=== PATIENT | female | born 1970 | race Hispanic/Latino ===

== ENCOUNTER 2017-10-24 08:36 | Emergency (ER) | payer SELFPAY ==
--- NOTE | 2017-10-24 09:45 | RAD ---
2 VIEWS CHEST: Date: 10/24/17 PROVIDED CLINICAL HISTORY: Cough. FINDINGS: Comparison with 11/04/15. Cardiac and mediastinal silhouette is within normal limits. Lungs appear clear. No pleural fluid or p neumothorax apparent. IMPRESSION: No evidence for an acute cardiopulmonary process. POS: [facility]
[2017-10-24 09:53] LABS: #Eosinphils 0.1 thou/uL (0.0-0.7); #Monocytes 0.7 thou/uL (0.11-0.59); #Neutrophils 7.9 thou/uL (1.40-6.50); %Eosinophils 0.6 % (0.0-10.0); %Lymphocytes 10.6 % (21.0-51.0); %Monocytes 7.3 % (0.0-10.0); %Neutrophils 81.6 % (42.0-75.0); Hemoglobin 12.1 g/dL (12.0-16.0); Mean Corpuscular HGB CONC 33.4 g/dL (32.0-36.0); Mean Corpuscular Hemoglobin 25.6 pg (27.0-31.0); Mean Corpuscular Volume 76.5 fl (81.0-99.0); Mean Platelet Volume 9.2 fL (7.4-10.4); Platelet Count 227 thou/uL (130-400); RBC Distribution Width 13.6 % (11.5-14.5); Red Blood Cell (RBC) Count 4.73 mill/uL (4.20-5.40); White Blood Cell (WBC) Count 9.6 thou/uL (4.8-10.8)
[2017-10-24 10:16] LABS: ALT (SGPT) 23 U/L (8-55); AST (SGOT) 20 U/L (5-34); Albumin 3.2 g/dL (3.5-5.0); Alkaline Phosphatase 97 U/L (40-150); Anion Gap 10 mmol/L (10-20); BUN (Urea Nitrogen) 13 mg/dL (7.0-18.7); Bilirubin, Total 0.4 mg/dL (0.2-1.2); Calc. Creatinine Clearance 0 mL/min (70-130); Calcium 8.8 mg/dL (7.8-10.44); Carbon Dioxide 26 mmol/L (22-29); Chloride 99 mmol/L (98-107); Estimated GFR-MDRD 59; Glucose 272 mg/dL (70-105); Magnesium 1.5 mg/dL (1.6-2.6); Phosphorus 2.8 mg/dL (2.3-4.7); Potassium 3.8 mmol/L (3.5-5.1); Protein, Total 7.2 g/dL (6.0-8.3); Sodium 131 mmol/L (136-145)
== END 2017-10-24 10:56 | disposition home or self-care (01) ==
LOC: ERS 08:36
DX: B34.9 Viral infection, unspecified (principal); M79.661 Pain in right lower leg; M79.662 Pain in left lower leg; E11.9 Type 2 diabetes mellitus without complications; I10 Essential (primary) hypertension; Z79.84 Long term (current) use of oral hypoglycemic drugs
CPT/HCPCS: 36415; 71046; 80053; 83735; 84100; 85025

== ENCOUNTER 2018-10-17 15:26 | Emergency (ER) | payer SELFPAY ==
[2018-10-17 16:21] LABS: Hemoglobin 12.3 g/dL (12.0-16.0); Mean Corpuscular HGB CONC 33.3 g/dL (32.0-36.0); Mean Corpuscular Hemoglobin 24.4 pg (27.0-31.0); Mean Corpuscular Volume 73.1 fL (78.0-98.0); Mean Platelet Volume 9.2 fL (7.4-10.4); Platelet Count 262 thou/uL (130-400); RBC Distribution Width 13.7 % (11.5-14.5); Red Blood Cell (RBC) Count 5.07 mill/uL (4.20-5.40); White Blood Cell (WBC) Count 14.8 thou/uL (4.8-10.8)
[2018-10-17 16:38] LABS: ALT (SGPT) 17 U/L (8-55); AST (SGOT) 15 U/L (5-34); Alkaline Phosphatase 113 U/L (40-150); Anion Gap 11 mmol/L (10-20); BUN (Urea Nitrogen) 11 mg/dL (7.0-18.7); Bilirubin, Total 0.4 mg/dL (0.2-1.2); Calc. Creatinine Clearance 0 mL/min (70-130); Calcium 8.7 mg/dL (7.8-10.44); Carbon Dioxide 23 mmol/L (22-29); Chloride 101 mmol/L (98-107); Estimated GFR-MDRD 56; Glucose 446 mg/dL (70-105); Potassium 3.8 mmol/L (3.5-5.1); Sodium 131 mmol/L (136-145)
[2018-10-17 16:41] LABS: #Basophils 0.1 thou/uL (0.0-0.2); #Eosinphils 0.2 thou/uL (0.0-0.7); #Lymphocytes 1.9 thou/uL (1.20-3.40); #Monocytes 0.5 thou/uL (0.11-0.59); #Neutrophils 12.2 thou/uL (1.40-6.50); %Basophils 0.4 % (0.0-1.0); %Eosinophils 1.2 % (0.0-10.0); %Lymphocytes 12.8 % (21.0-51.0); %Monocytes 3.5 % (0.0-10.0); %Neutrophils 82.2 % (42.0-75.0); Large Platelets SLIGHT; MDiff Complete? YES; Microcytosis SLIGHT = 6-15 cells (100X) (0-5/hpf); PLT Morphology Comment Appears Adequate; Poikilocytosis SLIGHT = 6-15 cells (100X) (0-5/hpf)
--- NOTE | 2018-10-17 16:43 | RAD ---
CHEST TWO VIEW 10/17/18 HISTORY: Chest pain, cough. COMPARISON: Radiograph 10/24/17. FINDINGS: There is mild peribronchial thickening along the right infrahilar bronchi. There is atelectatic michaud e in the lingula. No pneumothorax. No large effusion. No acute osseous abnormality. IMPRESSION: Findings suggesting low grade bronchitis as well as atelectatic change in the left lung base. POS: [facility]
[2018-10-17] MEDS ORDERED: Albuterol Sulfate 2.5 mg/3 ml Neb ONE (18:22)
[2018-10-17] MEDS ORDERED: cefTRIAXone\\ROCEPHIN 1 GM VIAL ONE (18:31)
== END 2018-10-17 19:56 | disposition home or self-care (01) ==
LOC: ERS 15:26
DX: J20.9 Acute bronchitis, unspecified (principal); E86.0 Dehydration; E11.9 Type 2 diabetes mellitus without complications; I10 Essential (primary) hypertension; Z79.84 Long term (current) use of oral hypoglycemic drugs
CPT/HCPCS: 36415; 71046; 80053; 85025; 87804; 93005; 94644; 96361; 96365; J0696; J7611; J7620

== ENCOUNTER 2019-08-15 14:11 | Emergency (ER) | payer SELFPAY ==
[2019-08-15 14:45] LABS: #Basophils 0.1 thou/uL (0.0-0.2); #Eosinphils 0.3 thou/uL (0.0-0.7); #Lymphocytes 2.3 thou/uL (1.20-3.40); #Monocytes 0.4 thou/uL (0.11-0.59); #Neutrophils 8.6 thou/uL (1.40-6.50); %Basophils 0.6 % (0.0-1.0); %Eosinophils 2.6 % (0.0-10.0); %Neutrophils 73.9 % (42.0-75.0); Mean Corpuscular HGB CONC 35.4 g/dL (32.0-36.0); Mean Corpuscular Hemoglobin 26.8 pg (27.0-31.0); Mean Corpuscular Volume 75.6 fL (78.0-98.0); Platelet Count 271 thou/uL (130-400); White Blood Cell (WBC) Count 11.7 thou/uL (4.8-10.8)
[2019-08-15 15:06] LABS: ALT (SGPT) 25 U/L (8-55); AST (SGOT) 23 U/L (5-34); Albumin 3.3 g/dL (3.5-5.0); Alkaline Phosphatase 124 U/L (40-110); Anion Gap 13 mmol/L (10-20); BUN (Urea Nitrogen) 19 mg/dL (7.0-18.7); Bilirubin, Total 0.3 mg/dL (0.2-1.2); Calc. Creatinine Clearance 0 mL/min (70-130); Calcium 9.2 mg/dL (7.8-10.44); Carbon Dioxide 26 mmol/L (22-29); Chloride 96 mmol/L (98-107); Estimated GFR-MDRD 44; Globulin 3.7 g/dL (2.4-3.5); Lipase 61 U/L (8-78); Potassium 4.3 mmol/L (3.5-5.1); Sodium 131 mmol/L (136-145)
--- NOTE | 2019-08-15 15:08 | RAD ---
XR Chest 1 View Portable History: Weakness Comparison: Radiograph October 17, 2018 Findings: Lungs are clear. No pneumothorax or effusion. Cardiac silhouette and mediastinal contours a re within normal limits. No acute osseous abnormality. Low-grade levoscoliosis thoracic spine. Impression: No acute intrathoracic abnormality.
[2019-08-15 15:09] LABS: Glucose 622 mg/dL (70-105)
[2019-08-15] MEDS ORDERED: Insulin Regular 300 UNITS/3 ML VIAL ONE (15:40)
[2019-08-15 17:45] LABS: Bacteria/HPF None Seen HPF (None Seen); Bilirubin Negative (Negative); Blood, Urine 2+ (Negative); Clarity Clear (Clear); Glucose, Urine (Dipstick) Greater than 1000 mg/dL (Negative); Leukocyte Negative Leu/uL (Negative); Nitrite Negative (Negative); Protein, Urine (Dipstick) 100 mg/dL (Neg-Trace); Squamous Epithelial 0-3 HPF (0-3); Urobilinogen Normal mg/dL (Less than 2); WBC/HPF 0-3 HPF (0-3)
== END 2019-08-15 18:40 | disposition home or self-care (01) ==
LOC: ERS 14:11
DX: E11.65 Type 2 diabetes mellitus with hyperglycemia (principal); I10 Essential (primary) hypertension; Z79.84 Long term (current) use of oral hypoglycemic drugs
CPT/HCPCS: 36415; 36416; 71045; 80053; 81003; 81015; 82010; 83690; 84484; 85025; 93005; 96360; J1815

== ENCOUNTER 2020-05-02 17:57 | Emergency (ER) | payer SELFPAY ==
[~2020-05-02 17:57] MED LIST: Iopamidol-370 76% 500 ML 1 ML ONE
[2020-05-02 19:14] LABS: #Basophils 0.1 thou/uL (0.0-0.2); #Eosinphils 0.6 thou/uL (0.0-0.7); #Lymphocytes 2.7 thou/uL (1.20-3.40); #Monocytes 0.5 thou/uL (0.11-0.59); #Neutrophils 8.4 thou/uL (1.40-6.50); %Basophils 0.5 % (0.0-1.0); %Eosinophils 4.6 % (0.0-10.0); %Lymphocytes 22.4 % (21.0-51.0); %Monocytes 3.9 % (0.0-10.0); %Neutrophils 68.6 % (42.0-75.0); Hemoglobin 12.4 g/dL (12.0-16.0); Mean Corpuscular Hemoglobin 22.7 pg (27.0-31.0); Mean Corpuscular Volume 70.9 fL (78.0-98.0); Mean Platelet Volume 10.3 fL (7.4-10.4); Platelet Count 279 thou/uL (130-400); RBC Distribution Width 13.8 % (11.5-14.5); Red Blood Cell (RBC) Count 5.47 mill/uL (4.20-5.40); White Blood Cell (WBC) Count 12.3 thou/uL (4.8-10.8)
--- NOTE | 2020-05-02 19:16 | RAD ---
CHEST ONE VIEW: History: Chest pain Comparison: 08-15-19 FINDINGS: Heart size is within normal limits. The lungs are clear. No confluent pneumonia, overt edema, or pleu ral effusion. IMPRESSION: No significant acute intrathoracic disease. POS: [facility]
[2020-05-02 19:32] LABS: ALT (SGPT) 26 U/L (8-55); AST (SGOT) 28 U/L (5-34); Albumin 3.1 g/dL (3.5-5.0); Alkaline Phosphatase 106 U/L (40-110); Anion Gap 11 mmol/L (10-20); BUN (Urea Nitrogen) 14 mg/dL (7.0-18.7); Bilirubin, Total 0.3 mg/dL (0.2-1.2); CK (CPK) 38 U/L (29-168); Calc. Creatinine Clearance 0 mL/min (70-130); Calcium 9.7 mg/dL (7.8-10.44); Carbon Dioxide 24 mmol/L (22-29); Chloride 105 mmol/L (98-107); Estimated GFR-MDRD 56; Globulin 4.1 g/dL (2.4-3.5); Glucose 207 mg/dL (70-105); Lipase 48 U/L (8-78); Potassium 4.4 mmol/L (3.5-5.1); Protein, Total 7.2 g/dL (6.0-8.3); Sodium 136 mmol/L (136-145)
[2020-05-02] MEDS ORDERED: Morphine 4 MG/ML VIAL ONE (19:33)
[2020-05-02 19:42] LABS: MDiff Complete? YES; Microcytosis SLIGHT = 6-15 cells (100X) (0-5/hpf); Platelet Morphology Comment Appears Adequate; Polychromasia SLIGHT = 2-3 cells (100X) (0-2/hpf)
[2020-05-02 20:11] LABS: Bilirubin Negative (Negative); Blood, Urine 1+ (Negative); Clarity Clear (Clear); Glucose, Urine (Dipstick) Greater than 1000 mg/dL (Negative); Ketone, Urine Negative (Negative); Leukocyte Negative Leu/uL (Negative); Nitrite Negative (Negative); Protein, Urine (Dipstick) 300 mg/dL (Neg-Trace); Specific Gravity, Urine 1.032 (1.002-1.036); Squamous Epithelial 0-3 HPF (0-3); Urobilinogen Normal mg/dL (Less than 2); pH, Urine 6.5 (5.0-9.0)
[2020-05-02 20:12] LABS: Bacteria/HPF 1+ HPF (None Seen)
--- NOTE | 2020-05-02 20:23 | ULT ---
GALLBLADDER ULTRASOUND: History: Right upper quadrant pain. FINDINGS: Coarse heterogeneous liver echogenicity, evidence for nonspecific hepatic parenchymal process. No gal lbladder is visualized. Possible cholecystectomy? Common bile duct dilated 0.9 cm. No right renal hyd ronephrosis. Visualized pancreas is unremarkable. Negative Zhang's sign. IMPRESSION: Coarse heterogeneous liver echogenicity. Nonvisualized gallbladder. Dilated common bile duct at 0.9 c m. No evidence for other acute process. POS: [facility]
--- NOTE | 2020-05-02 20:29 | CT ---
CT ABDOMEN AND PELVIS WITH IV CONTRAST 05/02/2020 CLINICAL INFORMATION: Right upper abdominal pain pain radiating to back. Symptoms of been present for 3 days COMPARISON: 10/17/2012 Technique: Multiple contiguous axial CT images are obtained through the abdomen and pelvis with IV contrast. Cor onal reformatted images are provided. FINDINGS: Lower Chest: Mild atelectasis is present at each lung base. Vessels: Abdominal aorta is normal in caliber without evidence of an aortic dissection. Abdomen: Portal vein:Patent Gallbladder: Surgically absent. Liver: Mild diminished attenuation relative to the spleen similar to prior study and likely attributa ble to mild fatty infiltration. Spleen: within normal limits. Pancreas: within normal limits. Adrenals: within normal limits. Kidneys: within normal limits. Bowel: Small amount retained fecal material seen throughout the colon. Appendix: The appendix is mildly prominent measuring 7-8 mm, but there is no periappendiceal inflamma tory changes to suggest appendicitis. This is probably within normal limits for the patient. Peritoneum: No ascites or free air; no fluid collection. Mesentery and Retroperitoneum: No enlarged mesenteric or retroperitoneal lymph nodes. Abdominal Wall: Tiny fat-containing umbilical hernia. Pelvis: Reproductive Organs: Nonspecific diminished attenuation in the endometrial canal. The area of diminis hed attenuation in the endometrial canal has decreased when compared to prior study. Pelvis within normal limits. Bladder: Incompletely distended. Bones: Degenerative changes in the visualized thoracic spine and lower lumbar spine. IMPRESSION: 1. No acute findings in the abdomen or pelvis. 2. Cholecystectomy. 3. Evidence of constipation. 4. Mild fatty infiltration liver.
[2020-05-02] MEDS ORDERED: Ketorolac Tromethamine 30 MG/ML VIAL ONE (20:57)
== END 2020-05-02 21:05 | disposition home or self-care (01) ==
LOC: ERS 17:57
DX: R10.11 Right upper quadrant pain (principal); E11.9 Type 2 diabetes mellitus without complications; I10 Essential (primary) hypertension; Z79.84 Long term (current) use of oral hypoglycemic drugs; Z79.899 Other long term (current) drug therapy
CPT/HCPCS: 36415; 71045; 74177; 76705; 80053; 81003; 81015; 82550; 83690; 83880; 84484; 85025; 85379; 93005; 96374; 96375; J1885; J2270; Q9967

== ENCOUNTER 2020-05-04 18:33 | Emergency (ER) | payer SELFPAY ==
[2020-05-04 19:00] LABS: #Basophils 0.1 thou/uL (0.0-0.2); #Eosinphils 0.3 thou/uL (0.0-0.7); #Lymphocytes 1.8 thou/uL (1.20-3.40); #Monocytes 0.4 thou/uL (0.11-0.59); #Neutrophils 7.7 thou/uL (1.40-6.50); %Basophils 0.5 % (0.0-1.0); %Eosinophils 2.8 % (0.0-10.0); %Lymphocytes 17.2 % (21.0-51.0); %Neutrophils 75.5 % (42.0-75.0); Hemoglobin 11.7 g/dL (12.0-16.0); Mean Corpuscular HGB CONC 31.6 g/dL (32.0-36.0); Mean Corpuscular Hemoglobin 22.5 pg (27.0-31.0); Mean Corpuscular Volume 71.2 fL (78.0-98.0); Mean Platelet Volume 10.4 fL (7.4-10.4); Platelet Count 272 thou/uL (130-400); RBC Distribution Width 13.7 % (11.5-14.5); Red Blood Cell (RBC) Count 5.19 mill/uL (4.20-5.40); White Blood Cell (WBC) Count 10.2 thou/uL (4.8-10.8)
[2020-05-04 19:23] LABS: ALT (SGPT) 46 U/L (8-55); AST (SGOT) 36 U/L (5-34); Albumin 2.9 g/dL (3.5-5.0); Alkaline Phosphatase 150 U/L (40-110); Anion Gap 10 mmol/L (10-20); BUN (Urea Nitrogen) 13 mg/dL (7.0-18.7); Bilirubin, Total 0.3 mg/dL (0.2-1.2); Calc. Creatinine Clearance 0 mL/min (70-130); Calcium 8.6 mg/dL (7.8-10.44); Carbon Dioxide 23 mmol/L (22-29); Chloride 104 mmol/L (98-107); Estimated GFR-MDRD 44; Globulin 3.9 g/dL (2.4-3.5); Glucose 372 mg/dL (70-105); Potassium 3.9 mmol/L (3.5-5.1); Protein, Total 6.8 g/dL (6.0-8.3); Sodium 133 mmol/L (136-145)
[2020-05-04 23:21] LABS: Bilirubin Negative (Negative); Blood, Urine 1+ (Negative); Clarity Turbid (Clear); Glucose, Urine (Dipstick) Greater than 1000 mg/dL (Negative); Ketone, Urine Negative (Negative); Leukocyte 75 Leu/uL (Negative); Nitrite Negative (Negative); Protein, Urine (Dipstick) 600 mg/dL (Neg-Trace); Specific Gravity, Urine 1.042 (1.002-1.036); Urobilinogen Normal mg/dL (Less than 2); WBC/HPF Greater than 50 HPF (0-3)
[2020-05-04 23:22] LABS: Bacteria/HPF 1+ HPF (None Seen); Renal Epithelial None Seen HPF (None Seen)
[2020-05-04] MEDS ORDERED: Morphine 4 MG/ML VIAL ONE (23:41)
== END 2020-05-04 23:52 | disposition home or self-care (01) ==
LOC: ERS 18:33
DX: B02.9 Zoster without complications (principal); B01.9 Varicella without complication; E11.9 Type 2 diabetes mellitus without complications; I10 Essential (primary) hypertension; Z79.84 Long term (current) use of oral hypoglycemic drugs; Z79.899 Other long term (current) drug therapy
CPT/HCPCS: 36415; 80053; 81003; 81015; 83690; 85025; 94760; 96372; J2270